=== PATIENT | female | born 1935 | race Caucasian/White ===

== ENCOUNTER 2022-08-05 03:23 | Emergency (ER) | payer MEDICARE, MEDICAID, SELFPAY ==
[2022-08-05 03:24] VITALS: BP 124/56; PULSE 102; RESP 16; TEMP 36.4; O2SAT 95; BMI 25.0
--- NOTE | 2022-08-05 03:27 | CTR_ITS ---
PROCEDURE INFORMATION: Exam: CT Cervical Spine Without Contrast Exam date and time: 08/05/2022 3:37 AM Age: 87 years old Clinical indication: Injury or trauma; Fall; Blunt trauma; Patient HX: Patient found on the floor at halfway. Hematoma to upper forehead. Patient C/O back pain. History of dementia. TECHNIQUE: Imaging protocol: Computed tomography of the cervical spine without contrast. Radiation optimization: All CT scans at this facility use at least one of these dose optimization techniques: automated exposure control; mA and/or kV adjustment per patient size (includes targeted exams where dose is matched to clinical indication); or iterative reconstruction. COMPARISON: CT head wo con* [id number] 08/05/2022 3:34 AM RADIATION DOSE METRICS: Total DLP (mGy-cm): 148.47 FINDINGS: Bones/joints: The cervical spine demonstrates straightening of the normal lordotic curvature. No spondylolisthesis. The vertebral bodies maintain normal height. No fracture identified. The intervertebral discs maintain normal height. Multilevel facet arthropathy. Prominent multilevel anterior osteophyte formation. Mild multilevel broad-based posterior disc bulge/osteophyte complexes without significant osseous spinal stenosis. Lungs: The visualized lung apices are normal. Soft tissues: No prevertebral soft tissue swelling identified. Well corticated osseous calcifications along the posterior margin of C2. Surgical clips in the left neck noted. Left carotid/ICA stent noted. CT/CT cervical spin wo con* [id number] IMPRESSION: 1. No acute fracture or traumatic malalignment identified within the cervical spine. 2. Multilevel degenerative changes noted.
--- NOTE | 2022-08-05 03:27 | CTR_ITS ---
PROCEDURE INFORMATION: Exam: CT Head Without Contrast Exam date and time: 08/05/2022 3:34 AM Age: 87 years old Clinical indication: Injury or trauma; Fall; Blunt trauma (contusions or hematomas); Patient HX: Patient found on the floor at long term. Hematoma to upper forehead. Patient C/O back pain. History of dementia. TECHNIQUE: Imaging protocol: Computed tomography of the head without contrast. Radiation optimization: All CT scans at this facility use at least one of these dose optimization techniques: automated exposure control; mA and/or kV adjustment per patient size (includes targeted exams where dose is matched to clinical indication); or iterative reconstruction. COMPARISON: No relevant prior studies available. RADIATION DOSE METRICS: Total DLP (mGy-cm): 1021.08 FINDINGS: Brain: Area of encephalomalacia in the left frontoparietal/temporal region. Area of encephalomalacia in the superior left cerebellum. No intracranial hemorrhage identified. No acute large territorial infarct.Subcortical and periventricular white matter hypoattenuation likely consistent with mild chronic microvascular ischemic disease. Cerebral ventricles: The ventricles are within normal limits. Paranasal sinuses: Dense opacification of the partially visualized left maxillary sinus. Mastoid air cells: The visualized mastoid air cells are well aerated. Bones/joints: No cranial fracture identified. Soft tissues: Extracranial superficial soft tissue swelling/hematoma overlying the vertex of the skull. CT/CT head wo con* [id number] IMPRESSION: 1. Extracranial soft tissue hematoma. No underlying cranial fracture or acute intracranial abnormality identified. 2. Mild chronic microvascular ischemic disease. 3. Left paranasal sinus disease.
--- NOTE | 2022-08-05 03:27 | CTR_ITS ---
PROCEDURE INFORMATION: Exam: CT Thoracic Spine Without Contrast Exam date and time: 08/05/2022 3:40 AM Age: 87 years old Clinical indication: Injury or trauma; Fall; Blunt trauma (contusions or hematomas); Patient HX: Patient found on the floor at intermediate. Hematoma to upper forehead. Patient C/O back pain. History of dementia. TECHNIQUE: Imaging protocol: Computed tomography of the thoracic spine without contrast. Radiation optimization: All CT scans at this facility use at least one of these dose optimization techniques: automated exposure control; mA and/or kV adjustment per patient size (includes targeted exams where dose is matched to clinical indication); or iterative reconstruction. COMPARISON: CT cervical spin wo con* [id number] 08/05/2022 3:37 AM RADIATION DOSE METRICS: Total DLP (mGy-cm): 812.43 FINDINGS: Bones/joints: Age-indeterminate fracture involving an anterior osteophyte at the level of T7-T8. No fractures involving the vertebral bodies. Vertebral body heights are maintained. No malalignment. Osteopenia. No substantial spinal canal or neural foraminal stenosis. Soft tissues: Unremarkable. CT/CT thoracic spin wo con* [id number] IMPRESSION: Age-indeterminate fracture involving an anterior osteophyte at the level of T7-T8. No fractures involving the vertebral bodies. No malalignment.
--- NOTE | 2022-08-05 03:27 | CTR_ITS ---
PROCEDURE INFORMATION: Exam: CT Lumbar Spine Without Contrast Exam date and time: 08/05/2022 3:43 AM Age: 87 years old Clinical indication: Injury or trauma; Fall; Blunt trauma (contusions or hematomas); Patient HX: Patient found on the floor at [facility]. Hematoma to upper forehead. Patient C/O back pain. History of dementia. TECHNIQUE: Imaging protocol: Computed tomography of the lumbar spine without contrast. Radiation optimization: All CT scans at this facility use at least one of these dose optimization techniques: automated exposure control; mA and/or kV adjustment per patient size (includes targeted exams where dose is matched to clinical indication); or iterative reconstruction. COMPARISON: CT thoracic spin wo con* [id number] 08/05/2022 3:40 AM RADIATION DOSE METRICS: Total DLP (mGy-cm): 802.62 FINDINGS: Bones/joints: No acute fracture or malalignment. Osteopenia. No evidence of high-grade spinal canal stenosis. Moderate to severe neural foraminal stenosis at L3-L4 bilaterally. Soft tissues: Unremarkable. CT/CT lumbar spine wo con* [id number] IMPRESSION: No acute fracture or malalignment.
--- NOTE | 2022-08-05 03:28 | ED_ITS ---
HPI - Fall General: Chief Complaint: Fall Stated Complaint: FALL Time Seen by Provider: 08/05/22 03:23 Source: patient and EMS Mode of arrival: EMS Limitations: no limitations History of Present Illness: 87-year-old female who is here from assisted living who states she had got up tonight to go to the bathroom and fell states she fell backwards she hit her head she got head neck and some back pain states her pain is a 4 out of 10 she is unsure if she lost consciousness she does have dementia she denies any pain in extremities. Associated symptoms-after fall: Reports neck pain; Denies abdominal pain, chest pain or headache(s) Review of Systems Const: Denies: fever(s), chills, body aches or change in appetite Eyes: Denies: blurry vision or eye discomfort ENMT: Denies: throat pain or dental pain Card: Denies: chest pain Resp: Denies: dyspnea GI: Denies: abdominal pain, nausea, vomiting or diarrhea : Denies: dysuria Musc: Reports: neck pain and back pain Skin/Breast: Denies: rash Neuro: Denies: headache(s) Psych: Denies: depression Geo/Lymph: Denies: easy bruising All/Imm: Denies: urticaria PFSH ED PFSH: Medical History Dementia Social History Substance/Drug Use: never Physical Exam Const: COMMON NORMALS: no acute distress, patient oriented x3 and healthy appearing HENMT: COMMON NORMALS: normocephalic and atraumatic HEAD & SCALP: normocephalic and atraumatic Eye: COMMON NORMALS: Equal, round and reactive pupils present and EOMs intact bilaterally PUPIL: Yes Equal, round and reactive pupils present Neck/C-Spine: COMMON NORMALS: full ROM and supple Chest: COMMONS NORMALS: normal inspection of the chest and normal palpation of entire chest wall Resp: COMMON NORMALS: normal respiratory effort, No retractions, No use of accessory muscles and clear to auscultation bilaterally AUSCULTATION: clear to auscultation bilaterally Cardio: COMMON NORMALS: regular rate, regular rhythm and No murmurs present (Cardio) RATE: regular rate RHYTHM: regular rhythm GI: COMMON NORMALS: Normal to inspection, nondistended, normoactive bowel sounds present, Soft to palpation, non-tender and no masses PALPATION: Yes Soft to palpation Back/Pelvis: OTHER: Tenderness along back with no midline tenderness Extremity: COMMON NORMALS: normal to inspection and full ROM Neuro: COMMON NORMALS: patient oriented x3, moves all extremities and no focal motor deficits Psych: COMMON NORMALS: mental status grossly normal, Normal thought process present and cooperative THOUGHT PROCESS: Normal thought process present Skin: COMMON NORMALS: no rashes or lesions noted and no wounds GENERAL SKIN EXAM: no rashes or lesions noted Course Vital Signs: Vital signs: Vital Signs Temperature 97.5 F L 08/05/22 03:24 Pulse Rate 102 H 08/05/22 03:24 Respiratory Rate 16 08/05/22 03:24 Blood Pressure 124/56 08/05/22 03:24 Pulse Oximetry 95 08/05/22 03:24 Oxygen Delivery Me thod 08/05/22 03:24 MDM - Fall Medical Decision Making Patient presents here with closed head injury from a fall head CT and others imaging shows no acute abnormalities she is well-appearing here she has no signs of pelvic or hip injury she is stable for discharge she is to follow-up with PCP and return if worsening. Lab Data Radiology Impressions Cervical Spine CT 08/05/22 03:27 IMPRESSION: 1. No acute fracture or traumatic malalignment identified within the cervical spine. 2. Multilevel degenerative changes noted. Head CT 08/05/22 03:27 IMPRESSION: 1. Extracranial soft tissue hematoma. No underlying cranial fracture or acute intracranial abnormality identified. 2. Mild chronic microvascular ischemic disease. 3. Left paranasal sinus disease. Lumbar Spine CT 08/05/22 03:27 IMPRESSION: No acute fracture or malalignment. Thoracic Spine CT 08/05/22 03:27 IMPRESSION: Age-indeterminate fracture involving an anterior osteophyte at the level of T7-T8. No fractures involving the vertebral bodies. No malalignment. Discharge Plan Discharge Patient Disposition: Home Clinical Impression: Fall, Closed head injury Discharge Orders: Discharge ED (Routine); Ordered 08/05/22 Ordered By: Miguelangel Ross Referrals: Feliciano Vargas [Referring] - 1-3 days Discharge Diet: Advance as tolerated Discharge Activity: Resume usual activity Patient Instructions: Fall Prevention for Older Adults (ED), Head Injury (ED) Coding Level of Care Code ED [facility] [employer] for [facility] Fwd Exam Comprehensive
--- NOTE | 2022-08-05 04:47 | XRR_ITS ---
PROCEDURE INFORMATION: Exam: XR Pelvis Exam date and time: 08/05/2022 4:50 AM Age: 87 years old Clinical indication: Injury or trauma; Fall; Blunt trauma (contusions or hematomas); Bilateral; Pelvic region; Patient HX: Patient found on the floor at [facility]. Hematoma to upper forehead. Patient C/O back pain. History of dementia. TECHNIQUE: Imaging protocol: Radiologic exam of the pelvis. Views: 1 or 2 view. COMPARISON: CT lumbar spine wo con* [id number] 08/05/2022 3:43 AM FINDINGS: Bones/joints: No acute fracture or malalignment. Moderate degenerative changes of the bilateral hips. Osteopenia. Soft tissues: Unremarkable. XR/XR pelvis 1-2V* [id number] IMPRESSION: No acute fracture or malalignment.
--- NOTE | 2022-08-05 05:12 | PC.NURSE ---
Patient needed assistance getting up into a sitting and standing position initially but was able to tolerate walking from the bed to the door of the room and back fairly with a walker and standby assistance. Patient did sit in the chair at bedside for roughly five minutes and tolerated it well, she did need help getting back into bed and struggled with side stepping up to the head of the bed and she stated that it felt weird . I helped her lay down in the bed once she sat down by shifting her in by her shoulders and legs. she is resting comfortably in bed while she waits for her ride to come and pick her up.
[2022-08-05 05:57] VITALS: BP 124/56; PULSE 90; RESP 16; O2SAT 97
--- NOTE | 2022-08-05 07:09 | PC.NURSE ---
Patient resting in bed with equal chest rise.
== END 2022-08-05 07:53 | disposition home or self-care (01) ==
PROVIDERS: Emergency Provider Emergency Medicine
DX: S09.8XXA Other specified injuries of head, initial encounter (principal); F03.90 Unspecified dementia, unspecified severity, without behavioral disturbance, psychotic disturbance, mood disturbance, and anxiety; W18.30XA Fall on same level, unspecified, initial encounter; Y92.099 Unspecified place in other non-institutional residence as the place of occurrence of the external cause
CPT/HCPCS: 70450; 72125; 72128; 72131; 72170; 99284

== ENCOUNTER 2022-08-06 08:53 | Emergency (ER) | payer MEDICARE, MEDICAID, SELFPAY ==
[2022-08-06 08:59] VITALS: BP 174/82; PULSE 96; RESP 15; O2SAT 93
[2022-08-06 09:04] VITALS: BP 174/82; PULSE 99; O2SAT 93
--- NOTE | 2022-08-06 09:13 | CTR_ITS ---
PROCEDURE INFORMATION: Exam: CT Head Without Contrast Exam date and time: 08/06/2022 9:34 AM Age: 87 years old Clinical indication: Injury or trauma; Fall; Blunt trauma (contusions or hematomas) TECHNIQUE: Imaging protocol: Computed tomography of the head without contrast. Radiation optimization: All CT scans at this facility use at least one of these dose optimization techniques: automated exposure control; mA and/or kV adjustment per patient size (includes targeted exams where dose is matched to clinical indication); or iterative reconstruction. 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 Encephalomalacia in the left parietotemporal region. Patchy hypoattenuation in the periventricular and subcortical white matter, consistent with chronic small vessel ischemia. No CT evidence of acute ischemia. No acute hemorrhage. No mass effect. Cerebral ventricles: Global cerebral volume loss with ex vacuo dilatation of the ventricles. Paranasal sinuses: Remote appearing fractures of the right zygomatic arch, pterygoid plates and anterior wall of the right maxillary sinus. Mucosal thickening of the left maxillary sinus. Mastoid air cells: Visualized mastoid air cells are well aerated. Orbital cavities: Bilateral lens extractions. Bones/joints: Unremarkable. No acute fracture. Soft tissues: Similar scalp hematoma at the vertex. CT/CT head wo con* [id number] IMPRESSION: No acute intracranial abnormality. Please note that MRI is more sensitive for early changes of acute ischemia.
--- NOTE | 2022-08-06 09:13 | MRR_ITS ---
PROCEDURE INFORMATION: Exam: MR Thoracic Spine Without Contrast Exam date and time: 08/06/2022 10:43 AM Age: 87 years old Clinical indication: Pain in thoracic spine; Additional info: Fall TECHNIQUE: Imaging protocol: Magnetic resonance imaging of the thoracic spine without contrast. COMPARISON: CT thoracic spin wo con* [id number] 08/05/2022 3:40 AM FINDINGS: Bones/joints: See Prevertebral and retropharyngeal spaces finding. Spinal cord: Normal signal. No cord compression. T1-T2: No significant disc disease. No significant spinal canal stenosis. T2-T3: No significant disc disease. No significant spinal canal stenosis. T3-T4: No significant disc disease. No significant spinal canal stenosis. T4-T5: No significant disc disease. No significant spinal canal stenosis. T5-T6: No significant disc disease. No significant spinal canal stenosis. T6-T7: No significant disc disease. No significant spinal canal stenosis. T7-T8: No significant disc disease. No significant spinal canal stenosis. T8-T9: No significant disc disease. No significant spinal canal stenosis. T9-T10: No significant disc disease. No significant spinal canal stenosis. T10-T11: No significant disc disease. No significant spinal canal stenosis. T11-T12: No significant disc disease. No significant spinal canal stenosis. Soft tissues: Unremarkable. Prevertebral and retropharyngeal spaces: Mild prevertebral edema at the T7-T8 level, suggesting that the anterior osteophyte fracture seen on CT is acute. There is subtle T1 hypointensity in the inferior endplate of T1 with mild prevertebral edema at this level, possibly suggesting a nondisplaced compression fracture involving the inferior endplate without appreciable height loss. MR/MR thoracic spin wo con* [id number] IMPRESSION: 1. Query subtle acute compression fracture involving the inferior endplate of T1 without appreciable height loss. 2. Mild prevertebral edema at the T7-T8 level, suggesting that the anterior osteophyte fracture seen on CT is acute.
--- NOTE | 2022-08-06 09:15 | ED_ITS ---
HPI - Back Pain/Injury General: Chief Complaint: Back Pain/Injury Stated Complaint: BACK PAIN S/P FALL Time Seen by Provider: 08/06/22 08:54 Source: patient and EMS Mode of arrival: EMS Limitations: no limitations History of Present Illness: 87-year-old female who had a fall 2 days ago she had some back pain she had an osteophyte fracture she states her pain is worsened today was sent here from assisted living she does have a hematoma to her scalp she unsure if she had another fall. States her back pain is a 6 out of 10 she denies any weakness or difficulty walking. Associated symptoms: Deny abdominal pain, chills, dysuria, fever(s), nausea or vomiting Review of Systems Const: Denies: fever(s), chills, body aches or change in appetite Eyes: Denies: blurry vision or eye discomfort ENMT: Denies: throat pain or dental pain Card: Denies: chest pain Resp: Denies: dyspnea GI: Denies: abdominal pain, nausea, vomiting or diarrhea : Denies: dysuria Musc: Reports: back pain; Denies: neck pain Skin/Breast: Denies: rash Neuro: Denies: headache(s) Psych: Denies: depression Geo/Lymph: Denies: easy bruising All/Imm: Denies: urticaria PFSH ED PFSH: Medical History Dementia Social History (Updated 08/06/22 @ 09:18 by Miguelangel Ross MD) Substance/Drug Use: never Physical Exam Const: COMMON NORMALS: no acute distress, patient oriented x3 and healthy appearing HENMT: COMMON NORMALS: normocephalic; head/scalp not atraumatic (scalp hematoma) HEAD & SCALP: normocephalic; not atraumatic (scalp hematoma) Eye: COMMON NORMALS: Equal, round and reactive pupils present and EOMs intact bilaterally PUPIL: Yes Equal, round and reactive pupils present Neck/C-Spine: COMMON NORMALS: full ROM and supple Chest: COMMONS NORMALS: normal inspection of the chest and normal palpation of entire chest wall Resp: COMMON NORMALS: normal respiratory effort, No retractions, No use of acc essory muscles and clear to auscultation bilaterally AUSCULTATION: clear to auscultation bilaterally Cardio: COMMON NORMALS: regular rate, regular rhythm and No murmurs present (Cardio) RATE: regular rate RHYTHM: regular rhythm GI: COMMON NORMALS: Normal to inspection, nondistended, normoactive bowel sounds present, Soft to palpation, non-tender and no masses PALPATION: Yes Soft to palpation Back/Pelvis: OTHER: thoracic spine tenderness Extremity: COMMON NORMALS: normal to inspection and full ROM Neuro: COMMON NORMALS: patient oriented x3, moves all extremities and no focal motor deficits Psych: COMMON NORMALS: mental status grossly normal, Normal thought process present and cooperative THOUGHT PROCESS: Normal thought process present Skin: COMMON NORMALS: no rashes or lesions noted and no wounds GENERAL SKIN EXAM: no rashes or lesions noted Course Vital Signs: Vital signs: Vital Signs Pulse Rate 99 08/06/22 10:00 Respiratory Rate 15 08/06/22 08:59 Blood Pressure 157/79 08/06/22 10:00 Pulse Oximetry 92 08/06/22 10:00 MDM - Back Pain/Injury Medical Decision Making Patient presents with back pain she does have a compression fracture of T1 along with an osteophyte fracture. Patient had MRI discussed MRI and the case with Dr. Moraes we will place her in a TLSO brace and have her follow-up with him she has no signs of unstable fracture she is return if worsening. Labs Radiology Impressions Head CT 08/06/22 09:13 IMPRESSION: No acute intracranial abnormality. Please note that MRI is more sensitive for early changes of acute ischemia. Thoracic Spine MRI 08/06/22 09:13 IMPRESSION: 1. Query subtle acute compression fracture involving the inferior endplate of T1 without appreciable height loss. 2. Mild prevertebral edema at the T7-T8 level, suggesting that the anterior osteophyte fracture seen on CT is acute. Discharge Plan Discharge Patient Disposition: Home Clinical Impression: Fracture of thoracic spine Condition: Stable Prescriptions: New hydrocodone-acetaminophen 5-325 mg tablet 1 tab PO Q6H PRN (Reason: pain) Qty: 14 0RF Discharge Orders: Discharge ED (Routine); Ordered 08/06/22 Ordered By: Miguelangel Ross Other Ambulatory Orders: DME: Miscellaneous (Order) Location: None Selected Ordered By: Miguelangel Ross Referrals: Sylvester Moraes DO [Physician] - 1-3 days Discharge Diet: Advance as tolerated Discharge Activity: Resume usual activity Patient Instructions: Thoracolumbar Fracture (ED), Pain Management Coding Level of Care Code ED [employer] for [employer] Fwd Exam Comprehensive
[2022-08-06 10:00] VITALS: BP 157/79; PULSE 99; O2SAT 92
[2022-08-06 13:06] VITALS: BP 180/93; O2SAT 93
--- NOTE | 2022-08-08 10:33 | DCPLANNER ---
Addendum entered by Natasha Barrera 08/11/22 14:45: Patient had a follow up appointment scheduled for 08.11.[address] Moraes at ortho - patient did attend appointment. Original Note: transition program manager had message to schedule a follow up appointment for patient with ortho. transition program manager sent patients information to the front office staff at ortho. Patients information will be printed and reviewed. Clinic will call patient with appointment information.
== END 2022-08-06 13:50 | disposition home or self-care (01) ==
PROVIDERS: Emergency Provider Emergency Medicine
DX: S22.019A Unspecified fracture of first thoracic vertebra, initial encounter for closed fracture (principal); W19.XXXA Unspecified fall, initial encounter
CPT/HCPCS: 70450; 72146; 99284

== ENCOUNTER → 2022-08-11 10:02 | Outpatient (BNVA) | payer MEDICARE, MEDICAID, SELFPAY | PROVIDERS: Referring Provider Emergency Medicine; Visit Provider Orthopaedic Surgery | DX: S22.009A Unspecified fracture of unspecified thoracic vertebra, initial encounter for closed fracture (principal); W19.XXXA Unspecified fall, initial encounter; M47.814 Spondylosis without myelopathy or radiculopathy, thoracic region; M81.0 Age-related osteoporosis without current pathological fracture | CPT/HCPCS: 72070; 99203 ==

== ENCOUNTER → 2022-08-30 08:13 | Outpatient (BNVA) | payer MEDICARE, MEDICAID, SELFPAY | PROVIDERS: Visit Provider Orthopaedic Surgery | DX: S22.069D Unspecified fracture of T7-T8 vertebra, subsequent encounter for fracture with routine healing (principal); X58.XXXD Exposure to other specified factors, subsequent encounter; M47.814 Spondylosis without myelopathy or radiculopathy, thoracic region | CPT/HCPCS: 72070; 99213 ==

== ENCOUNTER → 2022-09-22 13:15 | Outpatient (BNVA) | payer MEDICARE, MEDICAID, SELFPAY | PROVIDERS: Visit Provider Thoracic Surgery (Cardiothoracic Vascular Surgery) | DX: L89.312 Pressure ulcer of right buttock, stage 2 (principal) | CPT/HCPCS: 99308 ==

== ENCOUNTER → 2022-09-28 13:13 | Outpatient (BNVA) | payer MEDICARE, SELFPAY | PROVIDERS: Visit Provider Thoracic Surgery (Cardiothoracic Vascular Surgery) | DX: L89.311 Pressure ulcer of right buttock, stage 1 (principal) ==

== ENCOUNTER → 2023-02-13 09:01 | Outpatient (BNVA) | payer MEDICARE, MEDICAID, SELFPAY | PROVIDERS: Visit Provider Podiatrist Foot & Ankle Surgery | DX: I73.9 Peripheral vascular disease, unspecified (principal); B35.1 Tinea unguium; E11.8 Type 2 diabetes mellitus with unspecified complications; M21.6X1 Other acquired deformities of right foot; M21.6X2 Other acquired deformities of left foot; M77.41 Metatarsalgia, right foot; M77.42 Metatarsalgia, left foot; G62.9 Polyneuropathy, unspecified; E11.42 Type 2 diabetes mellitus with diabetic polyneuropathy | CPT/HCPCS: 11721; 99204 ==

== ENCOUNTER → 2023-02-22 09:26 | Outpatient (BNVA) | payer MEDICARE, MEDICAID, SELFPAY | PROVIDERS: Visit Provider Orthopaedic Surgery | DX: X58.XXXD Exposure to other specified factors, subsequent encounter; S42.202K Unspecified fracture of upper end of left humerus, subsequent encounter for fracture with nonunion | CPT/HCPCS: 73030; 99203 ==

== ENCOUNTER → 2023-04-17 10:07 | Outpatient (BNVA) | payer MEDICARE, MEDICAID, SELFPAY | PROVIDERS: Visit Provider Podiatrist Foot & Ankle Surgery | DX: I73.9 Peripheral vascular disease, unspecified (principal); B35.1 Tinea unguium; S90.411A Abrasion, right great toe, initial encounter; S90.412A Abrasion, left great toe, initial encounter; X58.XXXA Exposure to other specified factors, initial encounter; E11.42 Type 2 diabetes mellitus with diabetic polyneuropathy; E11.8 Type 2 diabetes mellitus with unspecified complications; M21.6X1 Other acquired deformities of right foot; M21.6X2 Other acquired deformities of left foot; G62.9 Polyneuropathy, unspecified; Z79.84 Long term (current) use of oral hypoglycemic drugs | CPT/HCPCS: 11721; 99213 ==

== ENCOUNTER → 2023-06-23 10:17 | Outpatient (BNVA) | payer MEDICARE, MEDICAID, SELFPAY | PROVIDERS: Visit Provider Podiatrist Foot & Ankle Surgery | DX: B35.1 Tinea unguium (principal); S90.819A Abrasion, unspecified foot, initial encounter; I73.9 Peripheral vascular disease, unspecified; E11.8 Type 2 diabetes mellitus with unspecified complications; M21.6X1 Other acquired deformities of right foot; M21.6X2 Other acquired deformities of left foot; G62.9 Polyneuropathy, unspecified; X58.XXXA Exposure to other specified factors, initial encounter; E11.42 Type 2 diabetes mellitus with diabetic polyneuropathy; Z79.84 Long term (current) use of oral hypoglycemic drugs | CPT/HCPCS: 11721 ==

== ENCOUNTER → 2023-09-18 10:55 | Outpatient (BNVA) | payer MEDICARE, MEDICAID, SELFPAY | PROVIDERS: Visit Provider Podiatrist Foot & Ankle Surgery | DX: B35.1 Tinea unguium (principal); I73.9 Peripheral vascular disease, unspecified; E11.8 Type 2 diabetes mellitus with unspecified complications; M21.6X1 Other acquired deformities of right foot; M21.6X2 Other acquired deformities of left foot; G62.9 Polyneuropathy, unspecified; E11.42 Type 2 diabetes mellitus with diabetic polyneuropathy; Z79.4 Long term (current) use of insulin | CPT/HCPCS: 11721 ==

== ENCOUNTER → 2023-12-18 09:05 | Outpatient (BNVA) | payer MEDICARE, MEDICAID, SELFPAY | PROVIDERS: Visit Provider Podiatrist Foot & Ankle Surgery | DX: B35.1 Tinea unguium (principal); I73.9 Peripheral vascular disease, unspecified; E11.8 Type 2 diabetes mellitus with unspecified complications; M21.6X1 Other acquired deformities of right foot; M21.6X2 Other acquired deformities of left foot; G62.9 Polyneuropathy, unspecified; Z79.4 Long term (current) use of insulin | CPT/HCPCS: 11721 ==

== ENCOUNTER → 2024-02-19 09:56 | Outpatient (BNVA) | payer MEDICARE, MEDICAID, SELFPAY | PROVIDERS: PCP Family Medicine; Visit Provider Podiatrist Foot & Ankle Surgery | DX: B35.1 Tinea unguium (principal); I73.9 Peripheral vascular disease, unspecified; E11.8 Type 2 diabetes mellitus with unspecified complications; M21.6X1 Other acquired deformities of right foot; M21.6X2 Other acquired deformities of left foot; G62.9 Polyneuropathy, unspecified; Z79.4 Long term (current) use of insulin | CPT/HCPCS: 11721 ==